=== PATIENT | male | born 1995 | race Caucasian/White ===

== ENCOUNTER 2016-07-16 12:42 | Emergency (ER) | payer BC | END 2016-07-16 14:22 | disposition home or self-care (01) | LOC: ER1 12:42 | DX: S62.316A Displaced fracture of base of fifth metacarpal bone, right hand, initial encounter for closed fracture (principal); W18.30XA Fall on same level, unspecified, initial encounter; Y93.67 Activity, basketball | CPT/HCPCS: 73100; 73130; 99283 ==

== ENCOUNTER 2016-07-18 17:53 | Emergency (ER) | payer BC | END 2016-07-18 18:51 | disposition home or self-care (01) | LOC: ER1 17:53 | DX: S62.306D Unspecified fracture of fifth metacarpal bone, right hand, subsequent encounter for fracture with routine healing (principal); X58.XXXD Exposure to other specified factors, subsequent encounter | CPT/HCPCS: 99283 ==